=== PATIENT | female | born 1980 | race Asian ===

== ENCOUNTER 2017-07-07 17:09 | Emergency (ER) | payer OTHER ==
[~2017-07-07] VITALS: Ht 162.6 cm; Wt 59.0 kg
[2017-07-07] MEDS ORDERED: Lidocaine 2% Visc 15ml soln ORAL ONE (17:30)
[2017-07-07] MEDS ORDERED: Mylanta II UD 30ml ORAL ONE (17:30)
--- NOTE | 2017-07-07 17:33 | Emergency Room Report ---
History of Present Illness General Chief Complaint: Chest Pain Source: Patient Present Illness HPI [id number] Walk-in with 20min episode of chest tightening "like a ball" to midchest Occurred at work Spread to neck then headache Happened previously, werent as long Associated with spicy food, coffee, stress Only takes vitamins for "low energy" No CAD risk factors Denies smoking, ETOH, drug use Not on control, no recent surgery/ortho, leg swelling Allergies: Coded Allergies: Crab (Verified Allergy, Unknown, 07/07/17) Patient History Past Medical History: none Past Surgical History: none Pertinent Family History: none Social History: Denies: alcohol use, drug use, smoking Immunizations: UTD Reviewed Nursing Documentation: PMH: Agreed, PSxH: Agreed Nursing Documentation-PMH Past Medical History: No Stated History Review of Systems All Other Systems: negative except mentioned in HPI Physical Exam Vital Signs Date Time Temp Pulse Resp B/P Pulse Ox O2 Delivery O2 Flow Rate FiO2 07/07/17 17:12 98.1 70 20 110/71 96 Room Air Sp02 EP Interpretation: reviewed, normal General Appearance: normal inspection, well appearing, no apparent distress, alert, GCS 15, non-toxic Head: normocephalic, atraumatic Eyes: bilateral eye EOMI, bilateral eye PERRL ENT: normal ENT inspection, hearing grossly normal, normal voice Neck: normal inspection, full range of motion, supple, no bony tend Respiratory: normal inspection, lungs clear, normal breath sounds, no respiratory distress, no retraction, no wheezing, other - Reproducible chest wall ttp, chest symmetrical Cardiovascular #1: regular rate, rhythm, no edema Gastrointestinal: normal inspection, normal bowel sounds, non tender, soft, no guarding, no hernia Genitourinary: no CVA tenderness Musculoskeletal: normal inspection, back normal, normal range of motion, Fabian' s Sign negative Neurologic: normal inspection, alert, oriented x3, responsive, 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 Afebrile Unlikely cardiac in etiology given reproducible, "burning" in quality, worse with movement, worse with spicy food/coffee/stress, no CAD risk factors Also unlikely PE given normal ECG, no ischemia, no hypoxia. Not on control, no recent surgery Improved with PO viscous lido, maalox DC home EKG Diagnostic Results Rate: normal Rhythm: NSR ST Segments: no acute changes ASA given to the pt in ED: No Last Vital Signs Date Time Temp Pulse Resp B/P Pulse Ox O2 Delivery O2 Flow Rate FiO2 07/07/17 17:24 68 18 Room Air 07/07/17 17:12 98.1 110/71 96 Status: improved MILAGROS HENDRICKSON M.D. Jul 07, 2017 17:33
[2017-07-07] MEDS ORDERED: PEPCID20 MG ORAL (17:34)
[2017-07-07 17:46] VITALS: BP 127/88
== END 2017-07-07 17:47 | disposition home or self-care (01) ==
LOC: EMR 17:35
DX: R07.9 Chest pain, unspecified (principal); R51 Headache; M54.2 Cervicalgia; Z91.013 Allergy to seafood
CPT/HCPCS: 99284